=== PATIENT | female | born 1940 | race Caucasian/White ===

== ENCOUNTER 2021-10-23 21:20 | Inpatient (IN) | payer MEDICARE, BC ==
[~2021-10-23] VITALS: Ht 157.5 cm; Wt 83.9 kg
[2021-10-23 20:00] VITALS: BP 144/39
[2021-10-23 20:30] VITALS: BP 144/49
--- NOTE | 2021-10-23 20:30 | NUR ---
Admitted this 81 y/o female from [facility] via [facility]. Awake, alert and oriented x 3. Not in resp distress. [facility] with 2 person assist. Oriented to room, staffs, call light, TV remote and bed control. Routine admission care done, plan of care initiated. Safety measures and fall precaution initiated. Call light within reach.
[2021-10-24] MEDS ORDERED: HYDR100T27 PO ×2
[2021-10-24] MEDS ORDERED: LABE300T2 PO
[2021-10-24] MEDS ORDERED: HYDR-3980 PO ×2 (00:01→07:46)
[2021-10-24] MEDS ORDERED: AMLO10TA59 PO (00:09)
[2021-10-24] MEDS ORDERED: ATOR80TA PO (00:09)
[2021-10-24] MEDS ORDERED: ALBU18HF2 IH (00:09)
[2021-10-24] MEDS ORDERED: ZOLP5TAB8 PO (00:09)
[2021-10-24 04:00] VITALS: BP 163/37
[2021-10-24 04:41] VITALS: BP 163/37
[2021-10-24] MEDS: LEVOTHYROXINE SODIUM 75 MCG TABLET PO SCH (06:15)
[2021-10-24] MEDS ORDERED: HEPA500034 SQ (07:46)
[2021-10-24] MEDS ORDERED: SITA50TA GT (08:03)
[2021-10-24] MEDS ORDERED: ALLO100T PO (08:03)
[2021-10-24] MEDS ORDERED: CHLO25TA2 PO (08:03)
[2021-10-24] MEDS ORDERED: MULT-594 PO (08:03)
[2021-10-24] MEDS ORDERED: DARB300D3 IJ (08:03)
[2021-10-24] MEDS ORDERED: FURO-151 PO (08:03)
[2021-10-24] MEDS ORDERED: THIO300C PO (08:03)
[2021-10-24] MEDS ORDERED: CLOP75TA15 PO (08:03)
[2021-10-24] MEDS ORDERED: CHOL2000 PO (08:03)
[2021-10-24] MEDS ORDERED: INSU300I SQ (08:03)
[2021-10-24] MEDS ORDERED: FAMO40TA7 PO (08:03)
[2021-10-24 08:26] VITALS: BP 149/41
--- NOTE | 2021-10-24 08:30 | NUR ---
Medications entered in home meds for reconciliation. Dr. Chavez made aware and will reconcile medications. Patient is aware. Patient is AAO x4, able to make needs known. Known diabetic, no s/s of hypo/hyperglycemia. No sob or coughing noted. Patient c/o moderate pain to left hip. Patient repositioned and reports some relief. Patient is continent of bladder, bed sood provided until able to be seen by PT. All needs attended, call light within reach.
--- NOTE | 2021-10-24 09:50 | NUR ---
Dr. Chavez with orders for [place] PRN. Patient has taken this medication and does not have any allergic reaction.
[2021-10-24] MEDS ORDERED: HYDROCODONE/APAP 5-325MG TABLET PO PRN ×2 (10:00→17:15)
[2021-10-24] MEDS: REMEDY ESSENTIAL ZINC PASTE 113 GM TOP SCH ×2 (10:07→20:22)
[2021-10-24 16:06] VITALS: BP 150/39
[2021-10-24] MEDS ORDERED: ALBUTEROL SULFATE 8 GM HFA.AER.AD IH PRN (17:00)
[2021-10-24] MEDS: CHLORTHALIDONE 25 MG TABLET PO SCH (17:00)
[2021-10-24] MEDS ORDERED: ALBUTEROL SULFATE 2.5 MG/3 ML NEBU NEB PRN (17:15)
[2021-10-24] MEDS ORDERED: DEXTROSE 50% 50 ML DISP.SYRIN IV PRN (17:15)
[2021-10-24] MEDS: AMLODIPINE 10 MG TABLET PO SCH (18:17)
[2021-10-24] MEDS: ATORVASTATIN 40 MG TABLET PO SCH (20:22)
[2021-10-24] MEDS: INSULIN GLARGINE,HUM 300 UNITS/3 ML CARTRIDGE SQ SCH (20:28)
[2021-10-24] MEDS: INSULIN REGULAR, HUMAN 300 UNIT/3 ML VIAL SQ PRN (20:28)
[2021-10-24] MEDS: HEPARIN SODIUM,PORCINE 5,000 UNITS/ML VIAL SQ SCH (20:29)
[2021-10-24] MEDS: BLOOD SUGAR DIAGNOSTIC 1 EACH STRIP VI SCH (20:29)
[2021-10-24] MEDS ORDERED: ZOLPIDEM 5 MG TABLET PO PRN (21:00)
[2021-10-24] MEDS ORDERED: Medication Not On Formulary EA (Atorvastatin Calcium (Lipitor) 80 MG) PO SCH (21:00)
--- NOTE | 2021-10-25 04:36 | NUR ---
Patient slept intermittently. Denies any discomfort. No SOB or chest pain. AAO x4 with some anxiousness, able to redirect and teach coping techniques. S/P right hip bipolar replacement, dressing in place, clean and dry. PRN [place] provided for pain management. All needs attended by staff, call light within reach.
[2021-10-25] MEDS: BLOOD SUGAR DIAGNOSTIC 1 EACH STRIP VI SCH ×4 (06:13→20:29)
[2021-10-25] MEDS: LEVOTHYROXINE SODIUM 75 MCG TABLET PO SCH (06:13)
[2021-10-25 07:08] LABS: HEMATOCRIT 21.9 % (31.2-41.9); MEAN CORPUSCULAR HEMOGLOBIN 30.5 uug (24.7-32.8); MEAN CORPUSCULAR VOLUME 89.4 fL (75.5-95.3); PLATELET COUNT (AUTO) 147 K/uL (179-408)
[2021-10-25 07:46] LABS: IRON, SERUM 14 ug/dL (50-175)
[2021-10-25 07:51] LABS: THYROID STIMULATING HORMONE 0.672 mIU/mL (0.358-3.740)
[2021-10-25 07:52] LABS: ALANINE AMINOTRANSFERASE 12 U/L (14-59); ALKALINE PHOSPHATASE 106 U/L (50-136); ASPARTATE AMINOTRANSFERASE 43 U/L (15-37); BILIRUBIN,TOTAL 0.6 mg/dL (0.2-1.0); CARBON DIOXIDE 23 mmol/L (21-32); CHLORIDE 106 mmol/L (98-107); CHOLESTEROL 123 mg/dL (<200); GLUCOSE 128 mg/dL (74-106); HDL CHOLESTEROL 34 mg/dL (40-60); MAGNESIUM 2.4 mg/dL (1.8-2.4); PHOSPHOROUS 3.9 mg/dL (2.5-4.9); POTASSIUM 4.3 mmol/L (3.5-5.1); TOTAL PROTEIN, SERUM 5.7 g/dL (6.4-8.2); TRIGLYCERIDES 123 MG/DL (30-150); UREA NITROGEN, BLOOD 67 mg/dL (7-18)
[2021-10-25 08:17] VITALS: BP 162/43
[2021-10-25] MEDS: FUROSEMIDE 40 MG TABLET PO SCH (08:48)
[2021-10-25] MEDS: CHOLECALCIFEROL 1,000 UNIT TABLET PO SCH (08:48)
[2021-10-25] MEDS: ALLOPURINOL 100 MG TABLET PO SCH (08:48)
[2021-10-25] MEDS: AMLODIPINE 10 MG TABLET PO SCH (08:49)
[2021-10-25] MEDS: MULTIVITAMINS,THERAPEUTIC TABLET PO SCH (08:49)
[2021-10-25] MEDS: CLOPIDOGREL 75 MG TABLET PO SCH (08:49)
[2021-10-25] MEDS: HEPARIN SODIUM,PORCINE 5,000 UNITS/ML VIAL SQ SCH ×2 (08:51→20:31)
[2021-10-25] MEDS: REMEDY ESSENTIAL ZINC PASTE 113 GM TOP SCH ×2 (08:53→20:28)
[2021-10-25] MEDS: CHLORTHALIDONE 25 MG TABLET PO SCH (08:56)
[2021-10-25] MEDS ORDERED: Medication Not On Formulary EA (Multivitamins (Multivitamin) 1 EACH) PO SCH (09:00)
[2021-10-25] MEDS ORDERED: THIOCTIC ACID PO SCH (09:00)
[2021-10-25] MEDS ORDERED: Medication Not On Formulary EA (Cholecalciferol (Vitamin D3) (Vitamin D3) 1 CAP) PO SCH (09:00)
[2021-10-25] MEDS: INSULIN REGULAR, HUMAN 300 UNIT/3 ML VIAL SQ PRN ×3 (11:51→20:30)
[2021-10-25] MEDS ORDERED: HYDROCODONE/APAP 5-325MG TABLET PO PRN (13:48)
[2021-10-25] MEDS: SOD FERRIC GLUC COMPLX/SUCROSE 125 MG in IV NORMAL SALINE 100 ML IV SCH ×2 (14:00→14:04)
[2021-10-25] MEDS ORDERED: NALOXONE HCL 0.4 MG/ML AMPUL IV PRN (15:15)
[2021-10-25 16:25] VITALS: BP 155/41
--- NOTE | 2021-10-25 17:47 | NUR ---
mid line needed waiting for midline nurse to come. unable to give iron. several iv attempts done
[2021-10-25] MEDS: HYDROCODONE/APAP 10-325 MG TABLET PO PRN (18:08)
[2021-10-25] MEDS: BISACODYL 5 MG TABLET.DR PO PRN (18:08)
[2021-10-25 20:00] VITALS: BP 139/64
[2021-10-25] MEDS: ATORVASTATIN 40 MG TABLET PO SCH (20:18)
[2021-10-25] MEDS: INSULIN GLARGINE,HUM 300 UNITS/3 ML CARTRIDGE SQ SCH (20:28)
[2021-10-25] MEDS ORDERED: OXYCODONE HCL 10 MG TAB.SR.12H PO SCH (21:00)
--- NOTE | 2021-10-25 21:50 | NUR ---
Midline inserted at Right upper arm.
--- NOTE | 2021-10-25 22:00 | NUR ---
Flushing of Midline done several times, difficult to flush, prime saline running but will not run after few minutes. Ferrlecit IV not given, barcode code cant be scanned beyond 10/25/21 2300.
[2021-10-26 04:23] VITALS: BP 151/57
--- NOTE | 2021-10-26 05:05 | NUR ---
Slept well, no complaint of pain, not in distress, vitally stable.
[2021-10-26] MEDS ORDERED: SOD FERRIC GLUC COMPLX/SUCROSE 125 MG in IV NORMAL SALINE 100 ML IV SCH (06:00)
[2021-10-26] MEDS: LEVOTHYROXINE SODIUM 75 MCG TABLET PO SCH (06:07)
[2021-10-26] MEDS: BLOOD SUGAR DIAGNOSTIC 1 EACH STRIP VI SCH ×4 (06:10→20:38)
[2021-10-26 07:45] VITALS: BP 152/55
[2021-10-26] MEDS: ALLOPURINOL 100 MG TABLET PO SCH (08:39)
[2021-10-26] MEDS: CLOPIDOGREL 75 MG TABLET PO SCH (08:39)
[2021-10-26] MEDS: CHOLECALCIFEROL 1,000 UNIT TABLET PO SCH (08:39)
[2021-10-26] MEDS: FUROSEMIDE 40 MG TABLET PO SCH (08:39)
[2021-10-26] MEDS: CHLORTHALIDONE 25 MG TABLET PO SCH (08:39)
[2021-10-26] MEDS: MULTIVITAMINS,THERAPEUTIC TABLET PO SCH (08:39)
[2021-10-26] MEDS: REMEDY ESSENTIAL ZINC PASTE 113 GM TOP SCH ×2 (08:40→20:26)
[2021-10-26] MEDS: HEPARIN SODIUM,PORCINE 5,000 UNITS/ML VIAL SQ SCH ×2 (08:42→20:35)
[2021-10-26] MEDS: AMLODIPINE 5 MG TABLET PO SCH ×2 (08:46→20:25)
[2021-10-26] MEDS: HYDROCODONE/APAP 10-325 MG TABLET PO PRN (08:55)
[2021-10-26] MEDS: BISACODYL 5 MG TABLET.DR PO PRN ×2 (09:30→17:48)
--- NOTE | 2021-10-26 11:06 | NUR ---
INDIVIDUALIZED PLAN OF CARE
[2021-10-26] MEDS ORDERED: ONDANSETRON HCL 4 MG TABLET PO PRN (15:45)
[2021-10-26 16:28] VITALS: BP 104/71
--- NOTE | 2021-10-26 18:08 | NUR ---
refused dinner sliding scale coverage
--- NOTE | 2021-10-26 19:00 | NUR ---
Received patient on bed, awake, alert and oriented x4, no complaint of pain. with dressing at right hip dry and intact , with hematoma around the site noted, ice pack applied.
[2021-10-26 20:00] VITALS: BP 160/61
[2021-10-26] MEDS: ATORVASTATIN 40 MG TABLET PO SCH (20:15)
[2021-10-26] MEDS: INSULIN GLARGINE,HUM 300 UNITS/3 ML CARTRIDGE SQ SCH (20:36)
[2021-10-26] MEDS: INSULIN REGULAR, HUMAN 300 UNIT/3 ML VIAL SQ PRN (20:37)
[2021-10-27] MEDS: HYDROCODONE/APAP 10-325 MG TABLET PO PRN ×3 (01:10→20:14)
[2021-10-27 04:00] VITALS: BP 126/51
--- NOTE | 2021-10-27 05:23 | NUR ---
Slept well, repositioned for comfort, not in respiratory distress. Complaint of pain at right hip, received [place] once within the shift. In fair condition.
[2021-10-27 05:32] VITALS: BP 131/70
[2021-10-27] MEDS: LEVOTHYROXINE SODIUM 75 MCG TABLET PO SCH (06:14)
[2021-10-27] MEDS: BLOOD SUGAR DIAGNOSTIC 1 EACH STRIP VI SCH ×4 (06:30→20:31)
[2021-10-27 06:48] LABS: HEMATOCRIT 22.7 % (31.2-41.9); MEAN CORPUSCULAR HEMOGLOBIN 30.6 uug (24.7-32.8); MEAN CORPUSCULAR VOLUME 91.9 fL (75.5-95.3); PLATELET COUNT (AUTO) 206 K/uL (179-408)
[2021-10-27 07:21] LABS: ALANINE AMINOTRANSFERASE 20 U/L (14-59); ALKALINE PHOSPHATASE 118 U/L (50-136); ASPARTATE AMINOTRANSFERASE 23 U/L (15-37); BILIRUBIN,TOTAL 0.7 mg/dL (0.2-1.0); CARBON DIOXIDE 25 mmol/L (21-32); CHLORIDE 103 mmol/L (98-107); GLUCOSE 118 mg/dL (74-106); MAGNESIUM 2.4 mg/dL (1.8-2.4); PHOSPHOROUS 4.6 mg/dL (2.5-4.9); POTASSIUM 4.5 mmol/L (3.5-5.1); UREA NITROGEN, BLOOD 62 mg/dL (7-18)
[2021-10-27 08:00] VITALS: BP 143/46
[2021-10-27] MEDS ORDERED: SOD FERRIC GLUC COMPLX/SUCROSE 125 MG in IV NORMAL SALINE 100 ML IV SCH (08:00)
--- NOTE | 2021-10-27 08:23 | NUR ---
trop 76 text results to
[2021-10-27] MEDS: CHOLECALCIFEROL 1,000 UNIT TABLET PO SCH (09:07)
[2021-10-27] MEDS: FUROSEMIDE 40 MG TABLET PO SCH (09:08)
[2021-10-27] MEDS: ALLOPURINOL 100 MG TABLET PO SCH (09:08)
[2021-10-27] MEDS: MULTIVITAMINS,THERAPEUTIC TABLET PO SCH (09:08)
[2021-10-27] MEDS: CLOPIDOGREL 75 MG TABLET PO SCH (09:08)
[2021-10-27] MEDS: CHLORTHALIDONE 25 MG TABLET PO SCH (09:08)
[2021-10-27] MEDS: AMLODIPINE 5 MG TABLET PO SCH ×2 (09:08→20:55)
[2021-10-27] MEDS: HEPARIN SODIUM,PORCINE 5,000 UNITS/ML VIAL SQ SCH ×2 (09:09→20:17)
[2021-10-27] MEDS: REMEDY ESSENTIAL ZINC PASTE 113 GM TOP SCH ×2 (09:10→20:31)
[2021-10-27 17:14] VITALS: BP 142/55
--- NOTE | 2021-10-27 19:30 | NUR ---
Received pt awake, alert and orientedx3. Pt in no acute distress.Iv intact. Safety and comfort provided. Will continue to monitor.
[2021-10-27 20:03] VITALS: BP 163/56
[2021-10-27] MEDS: ATORVASTATIN 40 MG TABLET PO SCH (20:12)
[2021-10-27] MEDS: INSULIN REGULAR, HUMAN 300 UNIT/3 ML VIAL SQ PRN (20:18)
[2021-10-27] MEDS: INSULIN GLARGINE,HUM 300 UNITS/3 ML CARTRIDGE SQ SCH (20:32)
--- NOTE | 2021-10-27 21:35 | NUR ---
At 2014H no norco prn given to pt for 8/10 pain scale. Pt tolerated it well. After an hour pt stated medication effective and pain subsided. Pt in no acute distress. Safety provided. Will continue to monitor.
[2021-10-27 23:09] VITALS: BP 138/55
[2021-10-28 04:00] VITALS: BP 139/48
--- NOTE | 2021-10-28 05:27 | NUR ---
Pt slept comfortably. Pt in no acute distress. Iv intact. Prescribed medication given and pt tolerated it well.Vital signs within normal limit. All needs are met. Safety and comfort provided. Will endorse to incoming nurse for continuity of care.
[2021-10-28] MEDS: LEVOTHYROXINE SODIUM 75 MCG TABLET PO SCH (06:07)
[2021-10-28] MEDS: BLOOD SUGAR DIAGNOSTIC 1 EACH STRIP VI SCH ×4 (06:35→20:18)
[2021-10-28 06:53] LABS: HEMATOCRIT 22.3 % (31.2-41.9); MEAN CORPUSCULAR HEMOGLOBIN 31.2 uug (24.7-32.8); MEAN CORPUSCULAR VOLUME 91.7 fL (75.5-95.3); PLATELET COUNT (AUTO) 227 K/uL (179-408)
[2021-10-28 07:10] LABS: CARBON DIOXIDE 26 mmol/L (21-32); CHLORIDE 101 mmol/L (98-107); CREATININE 2.1 mg/dL (0.6-1.3); GLUCOSE 102 mg/dL (74-106); MAGNESIUM 2.3 mg/dL (1.8-2.4); PHOSPHOROUS 4.5 mg/dL (2.5-4.9); POTASSIUM 4.6 mmol/L (3.5-5.1); UREA NITROGEN, BLOOD 63 mg/dL (7-18)
[2021-10-28 07:48] VITALS: BP 150/46
[2021-10-28] MEDS: HYDROCODONE/APAP 10-325 MG TABLET PO PRN ×2 (08:18→19:18)
[2021-10-28] MEDS: FUROSEMIDE 40 MG TABLET PO SCH (08:18)
[2021-10-28] MEDS: AMLODIPINE 5 MG TABLET PO SCH ×2 (08:18→20:17)
[2021-10-28] MEDS: CHOLECALCIFEROL 1,000 UNIT TABLET PO SCH (08:18)
[2021-10-28] MEDS: CLOPIDOGREL 75 MG TABLET PO SCH (08:18)
[2021-10-28] MEDS: ALLOPURINOL 100 MG TABLET PO SCH (08:18)
[2021-10-28] MEDS: HEPARIN SODIUM,PORCINE 5,000 UNITS/ML VIAL SQ SCH ×2 (08:19→20:18)
[2021-10-28] MEDS: MULTIVITAMINS,THERAPEUTIC TABLET PO SCH (08:36)
[2021-10-28] MEDS: REMEDY ESSENTIAL ZINC PASTE 113 GM TOP SCH ×2 (08:39→20:18)
[2021-10-28] MEDS: INSULIN REGULAR, HUMAN 300 UNIT/3 ML VIAL SQ PRN ×3 (11:19→20:19)
[2021-10-28 16:03] VITALS: BP 151/50
[2021-10-28] MEDS ORDERED: EPOETIN ALFA 10,000 UNITS/ML VIAL SQ ONE (16:30)
[2021-10-28] MEDS ORDERED: EPOETIN ALFA-EPBX 10,000 UNIT/ML VIAL SQ ONE (18:00)
[2021-10-28 20:08] VITALS: BP 150/57
[2021-10-28] MEDS: ATORVASTATIN 40 MG TABLET PO SCH (20:15)
[2021-10-28] MEDS: INSULIN GLARGINE,HUM 300 UNITS/3 ML CARTRIDGE SQ SCH (20:18)
[2021-10-28] MEDS ORDERED: hydrALAZINE HCL 25 MG TABLET PO PRN (20:30)
[2021-10-29 04:09] VITALS: BP 160/58
[2021-10-29] MEDS: HYDROCODONE/APAP 10-325 MG TABLET PO PRN ×2 (04:14→22:15)
[2021-10-29] MEDS: LEVOTHYROXINE SODIUM 75 MCG TABLET PO SCH (06:08)
[2021-10-29] MEDS: PANTOPRAZOLE SODIUM 40 MG TABLET.DR PO SCH (06:08)
[2021-10-29] MEDS: BLOOD SUGAR DIAGNOSTIC 1 EACH STRIP VI SCH ×4 (06:30→21:03)
[2021-10-29] MEDS: CHOLECALCIFEROL 1,000 UNIT TABLET PO SCH (08:58)
[2021-10-29] MEDS: ALLOPURINOL 100 MG TABLET PO SCH (08:58)
[2021-10-29] MEDS: MULTIVITAMINS,THERAPEUTIC TABLET PO SCH (08:58)
[2021-10-29] MEDS: CLOPIDOGREL 75 MG TABLET PO SCH (08:58)
[2021-10-29] MEDS: FUROSEMIDE 40 MG TABLET PO SCH (08:59)
[2021-10-29] MEDS: AMLODIPINE 5 MG TABLET PO SCH ×2 (08:59→20:54)
[2021-10-29] MEDS: HEPARIN SODIUM,PORCINE 5,000 UNITS/ML VIAL SQ SCH ×2 (09:07→21:05)
[2021-10-29] MEDS: REMEDY ESSENTIAL ZINC PASTE 113 GM TOP SCH ×2 (09:08→20:54)
[2021-10-29] MEDS: INSULIN REGULAR, HUMAN 300 UNIT/3 ML VIAL SQ PRN ×3 (12:03→21:35)
--- NOTE | 2021-10-29 14:00 | NUR ---
UP IN W/CHAIR FOR PT/OT ORDERED WITH [facility] WILL CONTINUE TO OBSERVE.
[2021-10-29 16:32] VITALS: BP 160/58
[2021-10-29 19:51] VITALS: BP 95/56
[2021-10-29] MEDS: ATORVASTATIN 40 MG TABLET PO SCH (20:52)
[2021-10-29] MEDS ORDERED: INSULIN GLARGINE,HUM 300 UNITS/3 ML CARTRIDGE SQ ONE (21:28)
[2021-10-29] MEDS: INSULIN GLARGINE,HUM 300 UNITS/3 ML CARTRIDGE SQ SCH (21:34)
--- NOTE | 2021-10-30 04:47 | NUR ---
AAOx4 Admitted for right hip fracture secondary to a fall. Patient s/P right hip bipolar ORIF. Needs attended. VSS. No acute distress noted.Right hip dressing intact with vianey in place. Pain med given as needed with relief obtained. Fall precautions maintained. Siderails up for safety. Continent of bowel and bladder. No BM noted this shift. Right upper arm midline intact, flushed and patent. Accucheck @ 2100 was 172 with coverage given.
[2021-10-30 05:02] VITALS: BP 101/74
[2021-10-30] MEDS: PANTOPRAZOLE SODIUM 40 MG TABLET.DR PO SCH (06:05)
[2021-10-30] MEDS: LEVOTHYROXINE SODIUM 75 MCG TABLET PO SCH (06:05)
[2021-10-30] MEDS: BLOOD SUGAR DIAGNOSTIC 1 EACH STRIP VI SCH ×4 (06:31→20:35)
[2021-10-30 07:50] VITALS: BP 178/59
--- NOTE | 2021-10-30 08:15 | NUR ---
RECEIVED PATIENT IN BED AWAKE ALERT AND ORIENTED BUT AT TIMES FORGETFUL DENIES PAIN OR DISCOMFORTS AT THIS TIME REQUESTED TO BE PLACED ON THE COMMODE ASSISTED AND SEATED TO VOID RIGHT HIP INCISION IS INTACT AT THIS TIME WILL CONTINUE WITH PT/OT THERAPIES ORDERED.
[2021-10-30] MEDS: HEPARIN SODIUM,PORCINE 5,000 UNITS/ML VIAL SQ SCH ×2 (08:35→20:31)
[2021-10-30] MEDS: FUROSEMIDE 40 MG TABLET PO SCH (09:00)
[2021-10-30] MEDS: CHOLECALCIFEROL 1,000 UNIT TABLET PO SCH (09:12)
[2021-10-30] MEDS: CLOPIDOGREL 75 MG TABLET PO SCH (09:12)
[2021-10-30] MEDS: MULTIVITAMINS,THERAPEUTIC TABLET PO SCH (09:13)
[2021-10-30] MEDS: REMEDY ESSENTIAL ZINC PASTE 113 GM TOP SCH ×2 (09:13→20:41)
[2021-10-30] MEDS: ALLOPURINOL 100 MG TABLET PO SCH (09:13)
[2021-10-30] MEDS: AMLODIPINE 5 MG TABLET PO SCH ×2 (09:23→20:24)
[2021-10-30] MEDS: hydrALAZINE HCL 25 MG TABLET PO PRN (09:23)
--- NOTE | 2021-10-30 09:30 | NUR ---
PATIENT SEEN AND EXAMINED BY DR JOVEL NOTIFIED HIM THAT PATIENT IS REFUSING HER LASIX STATED THAT SHE IS NOT SUPPOSED TO TAKE IT EVERYDAY AND ALSO THAT PATIENTS SON SARA WANTS TO TALK WITH HIM AND HE STATED OKAY WILL CALL SARA.
[2021-10-30 11:03] LABS: HEMATOCRIT 26.3 % (31.2-41.9); MEAN CORPUSCULAR HEMOGLOBIN 30.3 uug (24.7-32.8); MEAN CORPUSCULAR VOLUME 91.5 fL (75.5-95.3); PLATELET COUNT (AUTO) 348 K/uL (179-408)
[2021-10-30 11:12] LABS: CARBON DIOXIDE 24 mmol/L (21-32); CHLORIDE 100 mmol/L (98-107); CREATININE 1.9 mg/dL (0.6-1.3); GLUCOSE 162 mg/dL (74-106); POTASSIUM 4.4 mmol/L (3.5-5.1); UREA NITROGEN, BLOOD 59 mg/dL (7-18)
[2021-10-30] MEDS: INSULIN REGULAR, HUMAN 300 UNIT/3 ML VIAL SQ PRN ×3 (12:23→20:36)
[2021-10-30] MEDS: HYDROCODONE/APAP 10-325 MG TABLET PO PRN ×2 (12:49→20:39)
--- NOTE | 2021-10-30 12:59 | NUR ---
NOTIFIED PATIENT THAT DR JOVEL ORDERED FERRLICIT FOR HER AND THAT [facility]I WILL BE INFUSING IT AROUND 1400 AND SHE STATED THAT SHE IS REFUSING TO TAKE IT STATED THAT SHE TOOK IT ONCE BEFORE AND HAD A REALLY BAD EXPERIENCE AND WILL NEVER TAKE IT AGAIN.DR JOVEL NOTIFIED AND HE STATED OKAY
[2021-10-30] MEDS: SOD FERRIC GLUC COMPLX/SUCROSE 125 MG in IV NORMAL SALINE 100 ML IV SCH (13:52)
--- NOTE | 2021-10-30 15:33 | NUR ---
INTERDISCIPLINARY TEAM CONFERENCE
[2021-10-30 16:00] VITALS: BP 131/50
--- NOTE | 2021-10-30 18:00 | NUR ---
IN CHAIR EATING DINNER DENIES DISCOMFORTS NOT IN DISTRESS AT THIS TIME
[2021-10-30 20:00] VITALS: BP 161/53
[2021-10-30] MEDS: ATORVASTATIN 40 MG TABLET PO SCH (20:24)
[2021-10-30] MEDS: INSULIN GLARGINE,HUM 300 UNITS/3 ML CARTRIDGE SQ SCH (20:34)
[2021-10-31 04:00] VITALS: BP 175/51
--- NOTE | 2021-10-31 05:14 | NUR ---
Awake alert and oriented x3-4 Forgetful at times. No acute distress noted. VSS Kept comfortable. All needs attended. Medicated with [place] for pain right hip. Will monitor patient. Fall precautions maintained. Siderails up for safety.
[2021-10-31] MEDS: LEVOTHYROXINE SODIUM 75 MCG TABLET PO SCH (06:10)
[2021-10-31] MEDS: PANTOPRAZOLE SODIUM 40 MG TABLET.DR PO SCH (06:10)
[2021-10-31] MEDS: BLOOD SUGAR DIAGNOSTIC 1 EACH STRIP VI SCH ×4 (06:32→20:28)
[2021-10-31 08:00] VITALS: BP 147/60
[2021-10-31] MEDS: BISACODYL 5 MG TABLET.DR PO PRN (08:07)
[2021-10-31] MEDS: ALLOPURINOL 100 MG TABLET PO SCH (08:07)
[2021-10-31] MEDS: CHOLECALCIFEROL 1,000 UNIT TABLET PO SCH (08:07)
[2021-10-31] MEDS: MULTIVITAMINS,THERAPEUTIC TABLET PO SCH (08:07)
[2021-10-31] MEDS: AMLODIPINE 5 MG TABLET PO SCH ×2 (08:08→20:13)
[2021-10-31] MEDS: CLOPIDOGREL 75 MG TABLET PO SCH (08:08)
[2021-10-31] MEDS: HEPARIN SODIUM,PORCINE 5,000 UNITS/ML VIAL SQ SCH ×2 (08:08→20:24)
[2021-10-31] MEDS: REMEDY ESSENTIAL ZINC PASTE 113 GM TOP SCH ×2 (08:08→20:27)
[2021-10-31] MEDS: HYDROCODONE/APAP 10-325 MG TABLET PO PRN ×2 (09:50→20:26)
[2021-10-31 10:47] LABS: *BILIRUBIN,URIN NEGATIVE (NEGATIVE); *BLOOD, URINE NEGATIVE (NEGATIVE); *CLARITY,URINE CLEAR (CLEAR); *COLOR,URINE YELLOW (YELLOW); *KETONES,URINE NEGATIVE (NEGATIVE); *UROBILINOGEN,URINE 0.2 E.U./dl (NORMAL); LEUKOCYTE ESTERASE ,URINE NEGATIVE (NEGATIVE); NITRITE, URINE NEGATIVE (NEGATIVE); UGLUCOSE NEGATIVE (NEGATIVE)
[2021-10-31] MEDS: INSULIN REGULAR, HUMAN 300 UNIT/3 ML VIAL SQ PRN ×2 (11:52→20:23)
[2021-10-31 12:16] LABS: BACTERIA,URINE FEW /HPF (NONE SEEN); RBC,URINE 0-3 /HPF (0-3); SQUAMOUS EPITHELIAL CELL,UR FEW /HPF (NONE SEEN); WBC,URINE NONE SEEN /HPF (0-3)
[2021-10-31] MEDS: FUROSEMIDE 40 MG TABLET PO SCH ×2 (12:16→12:19)
[2021-10-31] MEDS: SOD FERRIC GLUC COMPLX/SUCROSE 125 MG in IV NORMAL SALINE 100 ML IV SCH (13:22)
[2021-10-31 16:00] VITALS: BP 152/62
[2021-10-31] MEDS: hydrALAZINE HCL 25 MG TABLET PO PRN (16:53)
[2021-10-31] MEDS: NUTRISOURCE FIBER 4 GM PACKET PO SCH (17:22)
[2021-10-31 20:00] VITALS: BP 161/53
[2021-10-31] MEDS: ATORVASTATIN 40 MG TABLET PO SCH (20:12)
[2021-10-31] MEDS: INSULIN GLARGINE,HUM 300 UNITS/3 ML CARTRIDGE SQ SCH (20:23)
--- NOTE | 2021-11-01 03:55 | NUR ---
Condition unchanged. AAOx4 No acute distress noted. VSS Needs attended. Will monitor patient. Incontinent of bowel and bladder. Kept clean and dry. Tolerated po meds well. Accucheck @ 2100 was 156. Medicated with [place] as needed with relief noted. Fall precautions maintained. Siderails up for safety.
[2021-11-01 04:00] VITALS: BP 159/46
[2021-11-01] MEDS: LEVOTHYROXINE SODIUM 75 MCG TABLET PO SCH (06:10)
[2021-11-01] MEDS: PANTOPRAZOLE SODIUM 40 MG TABLET.DR PO SCH (06:10)
[2021-11-01] MEDS: BLOOD SUGAR DIAGNOSTIC 1 EACH STRIP VI SCH ×4 (06:32→20:35)
[2021-11-01] MEDS: MULTIVITAMINS,THERAPEUTIC TABLET PO SCH (08:02)
[2021-11-01] MEDS: CHOLECALCIFEROL 1,000 UNIT TABLET PO SCH (08:03)
[2021-11-01] MEDS: ALLOPURINOL 100 MG TABLET PO SCH (08:03)
[2021-11-01] MEDS: NUTRISOURCE FIBER 4 GM PACKET PO SCH ×2 (08:03→16:20)
[2021-11-01] MEDS: AMLODIPINE 5 MG TABLET PO SCH ×2 (08:03→20:36)
[2021-11-01] MEDS: CLOPIDOGREL 75 MG TABLET PO SCH (08:03)
[2021-11-01] MEDS: HEPARIN SODIUM,PORCINE 5,000 UNITS/ML VIAL SQ SCH ×2 (08:04→20:36)
[2021-11-01] MEDS: REMEDY ESSENTIAL ZINC PASTE 113 GM TOP SCH ×2 (08:04→20:36)
[2021-11-01 08:05] VITALS: BP 150/47
[2021-11-01] MEDS: INSULIN REGULAR, HUMAN 300 UNIT/3 ML VIAL SQ PRN ×3 (10:56→20:37)
[2021-11-01 12:05] LABS: *OCCULT BLOOD STOOL NEGATIVE (NEGATIVE)
[2021-11-01] MEDS: FUROSEMIDE 40 MG TABLET PO SCH (12:09)
[2021-11-01] MEDS: HYDROCODONE/APAP 10-325 MG TABLET PO PRN ×2 (13:58→20:51)
[2021-11-01 15:40] VITALS: BP 141/41
[2021-11-01 20:00] VITALS: BP 130/43
[2021-11-01] MEDS: ATORVASTATIN 40 MG TABLET PO SCH (20:36)
[2021-11-01] MEDS: INSULIN GLARGINE,HUM 300 UNITS/3 ML CARTRIDGE SQ SCH (20:37)
[2021-11-02 04:00] VITALS: BP 158/44
[2021-11-02] MEDS: BLOOD SUGAR DIAGNOSTIC 1 EACH STRIP VI SCH ×4 (06:20→20:49)
[2021-11-02] MEDS: LEVOTHYROXINE SODIUM 75 MCG TABLET PO SCH (06:20)
[2021-11-02] MEDS: PANTOPRAZOLE SODIUM 40 MG TABLET.DR PO SCH (06:20)
[2021-11-02 07:30] VITALS: BP 156/52
--- NOTE | 2021-11-02 07:30 | NUR ---
Received patient on bed, awake, alert and oriented x3 , no complaint of pain noted .
[2021-11-02] MEDS: CHOLECALCIFEROL 1,000 UNIT TABLET PO SCH (08:05)
[2021-11-02] MEDS: CLOPIDOGREL 75 MG TABLET PO SCH (08:05)
[2021-11-02] MEDS: ALLOPURINOL 100 MG TABLET PO SCH (08:05)
[2021-11-02] MEDS: MULTIVITAMINS,THERAPEUTIC TABLET PO SCH (08:05)
[2021-11-02] MEDS: REMEDY ESSENTIAL ZINC PASTE 113 GM TOP SCH ×2 (08:06→21:07)
[2021-11-02] MEDS: HEPARIN SODIUM,PORCINE 5,000 UNITS/ML VIAL SQ SCH ×2 (08:06→20:52)
[2021-11-02] MEDS: NUTRISOURCE FIBER 4 GM PACKET PO SCH ×2 (08:06→16:58)
[2021-11-02] MEDS: AMLODIPINE 5 MG TABLET PO SCH ×2 (08:06→20:42)
[2021-11-02] MEDS: HYDROCODONE/APAP 10-325 MG TABLET PO PRN ×2 (09:00→20:37)
[2021-11-02] MEDS: INSULIN REGULAR, HUMAN 300 UNIT/3 ML VIAL SQ PRN ×2 (11:41→20:51)
[2021-11-02] MEDS: FUROSEMIDE 40 MG TABLET PO SCH (12:06)
[2021-11-02 15:54] VITALS: BP_SYST 142
[2021-11-02 18:49] LABS: HEMATOCRIT 23.5 % (31.2-41.9); MEAN CORPUSCULAR HEMOGLOBIN 29.9 uug (24.7-32.8); MEAN CORPUSCULAR VOLUME 92.3 fL (75.5-95.3); PLATELET COUNT (AUTO) 341 K/uL (179-408)
[2021-11-02 18:56] LABS: ALANINE AMINOTRANSFERASE 37 U/L (14-59); ALKALINE PHOSPHATASE 157 U/L (50-136); ASPARTATE AMINOTRANSFERASE 32 U/L (15-37); BILIRUBIN,TOTAL 0.5 mg/dL (0.2-1.0); CARBON DIOXIDE 25 mmol/L (21-32); CHLORIDE 102 mmol/L (98-107); CREATININE 1.7 mg/dL (0.6-1.3); GLUCOSE 153 mg/dL (74-106); POTASSIUM 4.3 mmol/L (3.5-5.1); TOTAL PROTEIN, SERUM 6.1 g/dL (6.4-8.2); UREA NITROGEN, BLOOD 51 mg/dL (7-18)
[2021-11-02] MEDS: ATORVASTATIN 40 MG TABLET PO SCH (20:38)
[2021-11-02 20:46] VITALS: BP 149/50
[2021-11-02] MEDS: INSULIN GLARGINE,HUM 300 UNITS/3 ML CARTRIDGE SQ SCH (20:50)
[2021-11-03 04:00] VITALS: BP 157/49
[2021-11-03] MEDS: LEVOTHYROXINE SODIUM 75 MCG TABLET PO SCH (06:16)
[2021-11-03] MEDS: PANTOPRAZOLE SODIUM 40 MG TABLET.DR PO SCH (06:16)
[2021-11-03] MEDS: HYDROCODONE/APAP 10-325 MG TABLET PO PRN ×3 (06:17→19:34)
[2021-11-03] MEDS: BLOOD SUGAR DIAGNOSTIC 1 EACH STRIP VI SCH ×4 (06:43→21:42)
[2021-11-03] MEDS: MULTIVITAMINS,THERAPEUTIC TABLET PO SCH (08:44)
[2021-11-03] MEDS: CHOLECALCIFEROL 1,000 UNIT TABLET PO SCH (08:44)
[2021-11-03] MEDS: ALLOPURINOL 100 MG TABLET PO SCH (08:44)
[2021-11-03] MEDS: CLOPIDOGREL 75 MG TABLET PO SCH (08:45)
[2021-11-03] MEDS: HEPARIN SODIUM,PORCINE 5,000 UNITS/ML VIAL SQ SCH ×2 (08:45→20:21)
[2021-11-03] MEDS: AMLODIPINE 5 MG TABLET PO SCH ×2 (08:47→20:28)
[2021-11-03] MEDS: NUTRISOURCE FIBER 4 GM PACKET PO SCH ×2 (09:12→17:48)
[2021-11-03] MEDS: REMEDY ESSENTIAL ZINC PASTE 113 GM TOP SCH ×2 (09:13→21:45)
--- NOTE | 2021-11-03 09:45 | NUR ---
0700-Upon shift exchange rounds, rec'd patient in bed, no apparent respiratory distress, on R/A and evaristo. well. No c/o pain. Safety measures in place and call light within reach.
[2021-11-03] MEDS: FUROSEMIDE 40 MG TABLET PO SCH (13:24)
--- NOTE | 2021-11-03 13:45 | NUR ---
Patient was seen by [place] JOVEL MD, labs reviewed with no new orders.
[2021-11-03] MEDS: INSULIN REGULAR, HUMAN 300 UNIT/3 ML VIAL SQ PRN (16:37)
[2021-11-03 20:00] VITALS: BP 157/48
[2021-11-03] MEDS: ATORVASTATIN 40 MG TABLET PO SCH (20:19)
[2021-11-03] MEDS: INSULIN GLARGINE,HUM 300 UNITS/3 ML CARTRIDGE SQ SCH (20:22)
[2021-11-04 04:00] VITALS: BP 147/45
[2021-11-04] MEDS: PANTOPRAZOLE SODIUM 40 MG TABLET.DR PO SCH (06:26)
[2021-11-04] MEDS: LEVOTHYROXINE SODIUM 75 MCG TABLET PO SCH (06:26)
[2021-11-04] MEDS: BLOOD SUGAR DIAGNOSTIC 1 EACH STRIP VI SCH ×4 (06:42→20:09)
[2021-11-04 07:30] LABS: *BILIRUBIN,URIN NEGATIVE (NEGATIVE); *BLOOD, URINE NEGATIVE (NEGATIVE); *CLARITY,URINE CLEAR (CLEAR); *COLOR,URINE YELLOW (YELLOW); *KETONES,URINE NEGATIVE (NEGATIVE); *UROBILINOGEN,URINE 0.2 E.U./dl (NORMAL); LEUKOCYTE ESTERASE ,URINE TRACE (NEGATIVE); NITRITE, URINE NEGATIVE (NEGATIVE); PH,URINE 5.5 (5.0-8.0); UGLUCOSE NEGATIVE (NEGATIVE)
[2021-11-04 07:43] LABS: BACTERIA,URINE NONE SEEN /HPF (NONE SEEN); RBC,URINE 0-3 /HPF (0-3); SQUAMOUS EPITHELIAL CELL,UR FEW /HPF (NONE SEEN)
[2021-11-04] MEDS: CLOPIDOGREL 75 MG TABLET PO SCH (08:09)
[2021-11-04] MEDS: MULTIVITAMINS,THERAPEUTIC TABLET PO SCH (08:09)
[2021-11-04] MEDS: CHOLECALCIFEROL 1,000 UNIT TABLET PO SCH (08:09)
[2021-11-04] MEDS: ALLOPURINOL 100 MG TABLET PO SCH (08:09)
[2021-11-04] MEDS: NUTRISOURCE FIBER 4 GM PACKET PO SCH ×2 (08:09→16:05)
[2021-11-04] MEDS: HEPARIN SODIUM,PORCINE 5,000 UNITS/ML VIAL SQ SCH ×2 (08:10→20:08)
[2021-11-04] MEDS: AMLODIPINE 5 MG TABLET PO SCH ×2 (08:10→20:08)
[2021-11-04 08:25] VITALS: BP 141/49
[2021-11-04] MEDS: HYDROCODONE/APAP 10-325 MG TABLET PO PRN ×2 (08:31→19:50)
[2021-11-04] MEDS: REMEDY ESSENTIAL ZINC PASTE 113 GM TOP SCH ×2 (08:47→20:09)
[2021-11-04 11:18] LABS: HEMATOCRIT 24.9 % (31.2-41.9); MEAN CORPUSCULAR HEMOGLOBIN 29.9 uug (24.7-32.8); MEAN CORPUSCULAR VOLUME 92.1 fL (75.5-95.3); PLATELET COUNT (AUTO) 354 K/uL (179-408)
[2021-11-04] MEDS: FUROSEMIDE 40 MG TABLET PO SCH (13:00)
[2021-11-04 16:32] VITALS: BP 131/53
[2021-11-04] MEDS: INSULIN REGULAR, HUMAN 300 UNIT/3 ML VIAL SQ PRN (16:57)
[2021-11-04 20:00] VITALS: BP 159/59
[2021-11-04] MEDS: INSULIN GLARGINE,HUM 300 UNITS/3 ML CARTRIDGE SQ SCH (20:08)
[2021-11-04] MEDS: ATORVASTATIN 40 MG TABLET PO SCH (20:08)
[2021-11-05 04:00] VITALS: BP 138/43
[2021-11-05] MEDS: LEVOTHYROXINE SODIUM 75 MCG TABLET PO SCH (06:13)
[2021-11-05] MEDS: PANTOPRAZOLE SODIUM 40 MG TABLET.DR PO SCH (06:13)
--- NOTE | 2021-11-05 06:29 | NUR ---
PATIENT AWAKE IN BED, BLOOD SUGAR- 61. PATIENT IS ASYMPTOMATIC. GIVEN ORANGE JUICE. WILL RECHECK.
[2021-11-05] MEDS: BLOOD SUGAR DIAGNOSTIC 1 EACH STRIP VI SCH ×5 (06:31→21:33)
--- NOTE | 2021-11-05 06:44 | NUR ---
RECHECKED BLOOD SUGAR 68.
[2021-11-05 07:50] VITALS: BP 174/60
[2021-11-05] MEDS: AMLODIPINE 5 MG TABLET PO SCH ×2 (08:01→21:22)
[2021-11-05] MEDS: CHOLECALCIFEROL 1,000 UNIT TABLET PO SCH (08:01)
[2021-11-05] MEDS: NUTRISOURCE FIBER 4 GM PACKET PO SCH ×2 (08:01→16:12)
[2021-11-05] MEDS: HYDROCODONE/APAP 10-325 MG TABLET PO PRN ×3 (08:01→21:54)
[2021-11-05] MEDS: CLOPIDOGREL 75 MG TABLET PO SCH (08:01)
[2021-11-05] MEDS: BISACODYL 5 MG TABLET.DR PO PRN (08:01)
[2021-11-05] MEDS: ALLOPURINOL 100 MG TABLET PO SCH (08:01)
[2021-11-05] MEDS: REMEDY ESSENTIAL ZINC PASTE 113 GM TOP SCH ×2 (08:02→21:27)
[2021-11-05] MEDS: HEPARIN SODIUM,PORCINE 5,000 UNITS/ML VIAL SQ SCH ×2 (08:03→21:24)
[2021-11-05] MEDS: MULTIVITAMINS,THERAPEUTIC TABLET PO SCH (08:09)
[2021-11-05 09:25] VITALS: BP 147/53
[2021-11-05] MEDS: FUROSEMIDE 40 MG TABLET PO SCH ×2 (12:13→12:35)
[2021-11-05 16:00] VITALS: BP 177/60
[2021-11-05] MEDS: INSULIN REGULAR, HUMAN 300 UNIT/3 ML VIAL SQ PRN ×2 (16:13→21:36)
[2021-11-05 16:31] VITALS: BP 160/46
--- NOTE | 2021-11-05 19:00 | NUR ---
RECD PT IN BED, NO ACUTE DISTRESS NOTED, RESTING QUIETLY, NEEDS ATTENDED TO.
[2021-11-05 20:00] VITALS: BP 159/48
[2021-11-05] MEDS: ATORVASTATIN 40 MG TABLET PO SCH (21:19)
[2021-11-05] MEDS: METOPROLOL TARTRATE 25 MG TABLET PO SCH (21:21)
[2021-11-05] MEDS: INSULIN GLARGINE,HUM 300 UNITS/3 ML CARTRIDGE SQ SCH (21:34)
--- NOTE | 2021-11-05 22:54 | NUR ---
MEDICATED WITH [place] FOR RT HIP PAIN ,RELIEF AFFORDED, NO DIABETIC CRISES NOTED. DUE MEDS GIVEN.REPOSITIONED FOR COMFORT.
[2021-11-06] MEDS: BLOOD SUGAR DIAGNOSTIC 1 EACH STRIP VI SCH ×3 (06:30→16:54)
[2021-11-06] MEDS: PANTOPRAZOLE SODIUM 40 MG TABLET.DR PO SCH (07:53)
[2021-11-06] MEDS: LEVOTHYROXINE SODIUM 75 MCG TABLET PO SCH (07:53)
--- NOTE | 2021-11-06 07:54 | NUR ---
ENDORSED TO AM NURSE IN APPARENTLY FAIR CONDITION, BS 73,NO SIGNS OF DIABETIC CRIES. PHOTO OF RT HIP INCISION TAKEN.MATTHEW INTACT, NO DRAINAGE NOTED..
[2021-11-06 08:00] VITALS: BP 150/42
[2021-11-06] MEDS: CHOLECALCIFEROL 1,000 UNIT TABLET PO SCH (09:05)
[2021-11-06] MEDS: CLOPIDOGREL 75 MG TABLET PO SCH (09:06)
[2021-11-06] MEDS: MULTIVITAMINS,THERAPEUTIC TABLET PO SCH (09:06)
[2021-11-06] MEDS: HYDROCODONE/APAP 10-325 MG TABLET PO PRN ×2 (09:06→20:50)
[2021-11-06] MEDS: NUTRISOURCE FIBER 4 GM PACKET PO SCH ×2 (09:07→16:56)
[2021-11-06] MEDS: ALLOPURINOL 100 MG TABLET PO SCH (09:07)
[2021-11-06] MEDS: AMLODIPINE 5 MG TABLET PO SCH ×2 (09:08→20:59)
[2021-11-06] MEDS: METOPROLOL TARTRATE 25 MG TABLET PO SCH ×2 (09:09→20:54)
[2021-11-06] MEDS: hydrALAZINE HCL 25 MG TABLET PO PRN (09:09)
[2021-11-06] MEDS: HEPARIN SODIUM,PORCINE 5,000 UNITS/ML VIAL SQ SCH ×2 (09:12→21:08)
[2021-11-06] MEDS: REMEDY ESSENTIAL ZINC PASTE 113 GM TOP SCH ×2 (09:13→21:08)
[2021-11-06] MEDS: INSULIN REGULAR, HUMAN 300 UNIT/3 ML VIAL SQ PRN ×2 (12:33→16:55)
--- NOTE | 2021-11-06 15:32 | NUR ---
INTERDISCIPLINARY TEAM CONFERENCE
[2021-11-06 15:40] VITALS: BP 141/43
[2021-11-06 20:00] VITALS: BP 139/43
--- NOTE | 2021-11-06 20:00 | NUR ---
resting quietly in bed, pleasant and appropriate, needs attended to,repositioned for comfort.
[2021-11-06] MEDS: INSULIN GLARGINE,HUM 300 UNITS/3 ML CARTRIDGE SQ SCH (21:23)
[2021-11-06] MEDS: ATORVASTATIN 40 MG TABLET PO SCH (21:26)
[2021-11-07 04:00] VITALS: BP 158/46
[2021-11-07] MEDS: PANTOPRAZOLE SODIUM 40 MG TABLET.DR PO SCH (06:01)
[2021-11-07] MEDS: LEVOTHYROXINE SODIUM 75 MCG TABLET PO SCH (06:02)
[2021-11-07] MEDS: hydrALAZINE HCL 25 MG TABLET PO PRN (06:04)
[2021-11-07 06:51] LABS: HEMATOCRIT 24.5 % (31.2-41.9); MEAN CORPUSCULAR HEMOGLOBIN 30.7 uug (24.7-32.8); MEAN CORPUSCULAR VOLUME 93.3 fL (75.5-95.3); PLATELET COUNT (AUTO) 372 K/uL (179-408)
--- NOTE | 2021-11-07 06:53 | NUR ---
UP ON A BEDSIDE CHAIR, NO HEADACHE OR ANY COMPLAINTS PRESENTED.
--- NOTE | 2021-11-07 06:54 | NUR ---
BP 158/46 APRESOLINE DOSE GIVEN ORDERED.
[2021-11-07 07:03] LABS: CARBON DIOXIDE 29 mmol/L (21-32); CHLORIDE 103 mmol/L (98-107); CREATININE 1.7 mg/dL (0.6-1.3); GLUCOSE 71 mg/dL (74-106); MAGNESIUM 2.1 mg/dL (1.8-2.4); PHOSPHOROUS 4.6 mg/dL (2.5-4.9); POTASSIUM 4.1 mmol/L (3.5-5.1); UREA NITROGEN, BLOOD 48 mg/dL (7-18)
[2021-11-07 07:46] VITALS: BP 132/45
[2021-11-07] MEDS: AMLODIPINE 5 MG TABLET PO SCH ×2 (08:03→22:08)
[2021-11-07] MEDS: METOPROLOL TARTRATE 25 MG TABLET PO SCH ×2 (08:03→22:06)
[2021-11-07] MEDS: NUTRISOURCE FIBER 4 GM PACKET PO SCH ×2 (08:03→16:05)
[2021-11-07] MEDS: MULTIVITAMINS,THERAPEUTIC TABLET PO SCH (08:03)
[2021-11-07] MEDS: CLOPIDOGREL 75 MG TABLET PO SCH (08:03)
[2021-11-07] MEDS: ALLOPURINOL 100 MG TABLET PO SCH (08:03)
[2021-11-07] MEDS: CHOLECALCIFEROL 1,000 UNIT TABLET PO SCH (08:03)
[2021-11-07] MEDS: HEPARIN SODIUM,PORCINE 5,000 UNITS/ML VIAL SQ SCH ×2 (08:04→22:02)
[2021-11-07] MEDS: REMEDY ESSENTIAL ZINC PASTE 113 GM TOP SCH ×2 (08:04→21:00)
[2021-11-07] MEDS: HYDROCODONE/APAP 10-325 MG TABLET PO PRN (12:48)
[2021-11-07] MEDS: FUROSEMIDE 40 MG TABLET PO SCH (12:48)
[2021-11-07 16:00] VITALS: BP 126/54
[2021-11-07 20:00] VITALS: BP 157/54
[2021-11-07] MEDS: INSULIN GLARGINE,HUM 300 UNITS/3 ML CARTRIDGE SQ SCH (22:01)
[2021-11-07] MEDS: ATORVASTATIN 40 MG TABLET PO SCH (22:09)
[2021-11-08] MEDS: HYDROCODONE/APAP 10-325 MG TABLET PO PRN ×2 (01:55→18:19)
--- NOTE | 2021-11-08 01:59 | NUR ---
in apparently fair condition, due meds given. slept on and off.repositioned for comfort.
[2021-11-08 04:00] VITALS: BP 148/50
[2021-11-08] MEDS: PANTOPRAZOLE SODIUM 40 MG TABLET.DR PO SCH (07:00)
[2021-11-08] MEDS: LEVOTHYROXINE SODIUM 75 MCG TABLET PO SCH (07:01)
[2021-11-08 07:52] VITALS: BP 149/50
[2021-11-08] MEDS: CLOPIDOGREL 75 MG TABLET PO SCH (08:18)
[2021-11-08] MEDS: CHOLECALCIFEROL 1,000 UNIT TABLET PO SCH (08:18)
[2021-11-08] MEDS: MULTIVITAMINS,THERAPEUTIC TABLET PO SCH (08:18)
[2021-11-08] MEDS: ALLOPURINOL 100 MG TABLET PO SCH (08:19)
[2021-11-08] MEDS: REMEDY ESSENTIAL ZINC PASTE 113 GM TOP SCH ×2 (08:19→20:43)
[2021-11-08] MEDS: HEPARIN SODIUM,PORCINE 5,000 UNITS/ML VIAL SQ SCH ×2 (08:19→20:14)
[2021-11-08] MEDS: AMLODIPINE 5 MG TABLET PO SCH ×2 (08:19→20:13)
[2021-11-08] MEDS: METOPROLOL TARTRATE 25 MG TABLET PO SCH ×2 (08:19→20:42)
[2021-11-08] MEDS: NUTRISOURCE FIBER 4 GM PACKET PO SCH ×2 (08:19→16:12)
--- NOTE | 2021-11-08 11:15 | NUR ---
vianey removed per md orders.no drainage or foul smell noted. clean the site and put dry dressing
[2021-11-08 15:01] VITALS: BP 153/42
[2021-11-08 20:00] VITALS: BP 149/54
[2021-11-08] MEDS: INSULIN GLARGINE,HUM 300 UNITS/3 ML CARTRIDGE SQ SCH (20:11)
[2021-11-08] MEDS: ATORVASTATIN 40 MG TABLET PO SCH (20:13)
[2021-11-09 05:41] VITALS: BP 163/65
[2021-11-09] MEDS: hydrALAZINE HCL 25 MG TABLET PO PRN (05:50)
[2021-11-09] MEDS: PANTOPRAZOLE SODIUM 40 MG TABLET.DR PO SCH (06:03)
[2021-11-09] MEDS: LEVOTHYROXINE SODIUM 75 MCG TABLET PO SCH (06:03)
[2021-11-09 08:00] VITALS: BP 157/43
[2021-11-09] MEDS: HEPARIN SODIUM,PORCINE 5,000 UNITS/ML VIAL SQ SCH ×2 (08:03→20:07)
[2021-11-09] MEDS: METOPROLOL TARTRATE 25 MG TABLET PO SCH ×2 (08:04→20:06)
[2021-11-09] MEDS: ALLOPURINOL 100 MG TABLET PO SCH (08:04)
[2021-11-09] MEDS: CLOPIDOGREL 75 MG TABLET PO SCH (08:04)
[2021-11-09] MEDS: CHOLECALCIFEROL 1,000 UNIT TABLET PO SCH (08:04)
[2021-11-09] MEDS: HYDROCODONE/APAP 10-325 MG TABLET PO PRN ×2 (08:04→20:06)
[2021-11-09] MEDS: MULTIVITAMINS,THERAPEUTIC TABLET PO SCH (08:04)
[2021-11-09] MEDS: AMLODIPINE 5 MG TABLET PO SCH ×2 (08:04→20:07)
[2021-11-09] MEDS: REMEDY ESSENTIAL ZINC PASTE 113 GM TOP SCH ×2 (09:05→20:07)
[2021-11-09] MEDS: FUROSEMIDE 40 MG TABLET PO SCH (12:51)
[2021-11-09 16:23] VITALS: BP 158/50
[2021-11-09] MEDS: ATORVASTATIN 40 MG TABLET PO SCH (20:13)
[2021-11-09] MEDS: INSULIN GLARGINE,HUM 300 UNITS/3 ML CARTRIDGE SQ SCH (20:13)
[2021-11-10] MEDS: PANTOPRAZOLE SODIUM 40 MG TABLET.DR PO SCH (06:20)
[2021-11-10] MEDS: LEVOTHYROXINE SODIUM 75 MCG TABLET PO SCH (06:20)
[2021-11-10 07:39] VITALS: BP 152/50
[2021-11-10] MEDS: MULTIVITAMINS,THERAPEUTIC TABLET PO SCH (08:13)
[2021-11-10] MEDS: CLOPIDOGREL 75 MG TABLET PO SCH (08:13)
[2021-11-10] MEDS: CHOLECALCIFEROL 1,000 UNIT TABLET PO SCH (08:13)
[2021-11-10 08:14] VITALS: BP 152/50
[2021-11-10] MEDS: ALLOPURINOL 100 MG TABLET PO SCH (08:14)
[2021-11-10] MEDS: AMLODIPINE 5 MG TABLET PO SCH (08:14)
[2021-11-10] MEDS: METOPROLOL TARTRATE 25 MG TABLET PO SCH (08:14)
[2021-11-10] MEDS ORDERED: hydrALAZINE HCL 50 MG TABLET PO SCH (09:00)
[2021-11-10] MEDS: REMEDY ESSENTIAL ZINC PASTE 113 GM TOP SCH (09:29)
--- NOTE | 2021-11-10 14:00 | NUR ---
dc orders received noted and carried out.dc heplock per md orders .dc instruction and education given to the pt.pt said she will follow up with her pcp and dr gonsalez .pt left the facility via ambulances in stable condition
[2021-11-10] MEDS ORDERED: ATORVASTATIN 40 MG TABLET PO SCH (21:00)
== END 2021-11-10 14:03 | disposition home health service (06) | DRG 559 ==
PROVIDERS: ADMIT Physical Medicine & Rehabilitation Pain Medicine; ATTEND Physical Medicine & Rehabilitation Pain Medicine
PROC: 05HD33Z Insertion of Infusion Device into Right Cephalic Vein, Percutaneous Approach (ICD-10-PCS; principal; 2021-10-25)
DX: S72.001D Fracture of unspecified part of neck of right femur, subsequent encounter for closed fracture with routine healing (principal); N17.0 Acute kidney failure with tubular necrosis; G93.40 Encephalopathy, unspecified; E87.1 Hypo-osmolality and hyponatremia; I13.0 Hypertensive heart and chronic kidney disease with heart failure and stage 1 through stage 4 chronic kidney disease, or unspecified chronic kidney disease; I50.42 Chronic combined systolic (congestive) and diastolic (congestive) heart failure; E03.9 Hypothyroidism, unspecified; E11.22 Type 2 diabetes mellitus with diabetic chronic kidney disease; E66.9 Obesity, unspecified; I25.10 Atherosclerotic heart disease of native coronary artery without angina pectoris; J45.909 Unspecified asthma, uncomplicated; N18.9 Chronic kidney disease, unspecified; Z86.16 Personal history of COVID-19; Z95.1 Presence of aortocoronary bypass graft; Z95.2 Presence of prosthetic heart valve; W01.0XXD Fall on same level from slipping, tripping and stumbling without subsequent striking against object, subsequent encounter; M19.90 Unspecified osteoarthritis, unspecified site; E78.5 Hyperlipidemia, unspecified; M10.9 Gout, unspecified; Z68.34 Body mass index [BMI] 34.0-34.9, adult; Z87.891 Personal history of nicotine dependence; Z95.5 Presence of coronary angioplasty implant and graft; Z96.641 Presence of right artificial hip joint; K21.9 Gastro-esophageal reflux disease without esophagitis; Z88.1 Allergy status to other antibiotic agents; Z88.5 Allergy status to narcotic agent; Z88.2 Allergy status to sulfonamides; Z88.8 Allergy status to other drugs, medicaments and biological substances; R19.5 Other fecal abnormalities; D64.9 Anemia, unspecified; E61.1 Iron deficiency
CPT/HCPCS: 36415; 71045; 73501; 76770; 83550; 83735; 84100; 84443; 84484; 85025; 97535-GO-CO; A4663; A6213; J0885; J1644; J1815; J2916; J8499; Q0162